=== PATIENT | female | born 2000 | race Caucasian/White ===

== ENCOUNTER 2021-05-17 22:50 | Emergency (ER) | payer OTHER ==
[2021-05-18] MEDS ORDERED: ZYRTEC-D TABLE1 EACH PO (03:11)
== END 2021-05-18 03:04 | disposition home or self-care (01) ==
LOC: ER1 22:50
DX: J06.9 Acute upper respiratory infection, unspecified (principal); T78.40XA Allergy, unspecified, initial encounter; Z20.822 Contact with and (suspected) exposure to COVID-19
CPT/HCPCS: 87081; 87880; 99283; U0002